=== PATIENT | male | born 1950 | race Two or more races ===

== ENCOUNTER 2022-07-03 10:38 | Inpatient (IN) | payer MEDICAID, OTHER ==
[~2022-07-03] VITALS: Ht 160 cm; Wt 64.7 kg
[2022-07-03 15:18] LABS: Basophils # (auto) 0 10 ^3/uL (0-0.2); Basophils % (auto) 0.3 % (0.0-2.0); Eosinophils # (auto) 0 10 ^3/uL (0-0.8); Eosinophils % (auto) 0.3 % (0.0-7.0); Hematocrit 36.7 % (41.0-53.0); Hemoglobin 12.8 g/dL (13.5-17.5); Lymphocytes # (auto) 0.9 10 ^3/uL (0.4-5.4); Lymphocytes % (auto) 9.8 % (10.0-50.0); Mean Corpuscular Hemoglobin 30.7 pg (28.0-32.0); Mean Corpuscular Volume 87.8 fL (80.0-100.0); Monocytes # (auto) 0.5 10 ^3/uL (0-1.3); Monocytes % (auto) 5.6 % (0.0-12.0); Neutrophils # (auto) 8.1 10 ^3/uL (1.6-8.6); Red Blood Cells 4.18 10^6/uL (4.5-5.90); Red Cell Distribution Width 12.8 % (11.8-14.3); White Blood Cell 9.6 10^3/uL (4.4-10.8)
[2022-07-03 15:35] LABS: Calcium 8.5 mg/dL (8.5-10.1); Potassium 4.1 mmol/L (3.5-5.1)
[2022-07-03 15:39] LABS: BUN/Creatinine Ratio 5.7 (10.0-20.0); Bilirubin, Total 0.9 mg/dL (0.2-1.0); Total Protein 6.4 g/dL (6.4-8.2)
[2022-07-03] MEDS ORDERED: cefTRIAXone 1GM/50ML D5W 50 ML IV ONE (16:00)
[2022-07-03] MEDS ORDERED: SODIUM CHLORIDE 0.9% 1,000 ML IV ONE (16:00)
[2022-07-03] MEDS ORDERED: AZITHROMYCIN 500MG/ 250ML 250 ML IV ONE (16:00)
[2022-07-03 18:38] LABS: Urine Bacteria NONE SEEN /hpf (None Seen); Urine Blood 2+ /uL (Negative); Urine Specific Gravity 1.008 (1.001-1.035); Urine WBC 557 /hpf (0 - 3)
[2022-07-03] MEDS ORDERED: MORPHINE SULFATE INJ 2 MG/ml SYRG IV PRN (19:15)
[2022-07-03] MEDS ORDERED: SODIUM CHLORIDE 0.9% 1,000 ML IV SCH ×2 (19:15)
[2022-07-03] MEDS ORDERED: ONDANSETRON HCL 4 MG/2 ML VIAL IV PRN (19:15)
[2022-07-03 19:49] LABS: Protein, Urine 43.7 mg/dL (0.0-11.9)
[2022-07-03] MEDS: SODIUM CHLORIDE 0.9% 1,000 ML IV SCH (21:43)
[2022-07-03] MEDS: DOCUSATE SOD 100 MG CAP PO PRN (23:07)
[2022-07-04 00:11] VITALS: BP 136/87
[2022-07-04] MEDS ORDERED: NITR100C6 PO (00:46)
[2022-07-04] MEDS ORDERED: TAMS0.4C36 PO (00:46)
[2022-07-04 05:00] VITALS: BP 120/62
[2022-07-04 06:14] LABS: Basophils # (auto) 0 10 ^3/uL (0-0.2); Basophils % (auto) 0.4 % (0.0-2.0); Eosinophils # (auto) 0 10 ^3/uL (0-0.8); Eosinophils % (auto) 0.3 % (0.0-7.0); Hematocrit 35.8 % (41.0-53.0); Hemoglobin 12.9 g/dL (13.5-17.5); Lymphocytes # (auto) 0.9 10 ^3/uL (0.4-5.4); Lymphocytes % (auto) 9.8 % (10.0-50.0); Mean Corpuscular Hemoglobin 31.7 pg (28.0-32.0); Mean Corpuscular Volume 88.2 fL (80.0-100.0); Monocytes % (auto) 10.7 % (0.0-12.0); Neutrophils % (auto) 78.8 % (37.0-80.0); Red Blood Cells 4.07 10^6/uL (4.5-5.90); Red Cell Distribution Width 12.8 % (11.8-14.3); White Blood Cell 8.9 10^3/uL (4.4-10.8)
[2022-07-04 07:01] LABS: Potassium 3.8 mmol/L (3.5-5.1)
[2022-07-04 07:13] LABS: Albumin 2.7 g/dL (3.4-5.0); BUN/Creatinine Ratio 10.8 (10.0-20.0); Calcium 8.5 mg/dL (8.5-10.1)
[2022-07-04 07:16] LABS: Total Protein 6.5 g/dL (6.4-8.2)
[2022-07-04] MEDS: SODIUM CHLORIDE 0.9% 1,000 ML IV SCH ×2 (07:30→17:30)
[2022-07-04 08:49] VITALS: BP 121/72
[2022-07-04] MEDS: cefTRIAXone 1GM/50ML D5W 50 ML IV SCH (09:00)
[2022-07-04] MEDS: ENOXAPARIN SOD 30 MG/0.3 ML SYRINGE SC SCH (10:00)
[2022-07-04] MEDS: AZITHROMYCIN 500MG/ 250ML 250 ML IV SCH (10:00)
[2022-07-04] MEDS ORDERED: FINASTERIDE 5 MG TAB PO SCH (10:00)
[2022-07-04 12:50] VITALS: BP 117/55
[2022-07-04 17:18] VITALS: BP 109/53
[2022-07-04] MEDS ORDERED: TAMSULOSIN HYDROCHLORIDE 0.4 MG CAP PO SCH (18:00)
[2022-07-04] MEDS: DOCUSATE SOD 100 MG CAP PO PRN (21:11)
[2022-07-04 22:00] VITALS: BP 118/53
[2022-07-05] MEDS: SODIUM CHLORIDE 0.9% 1,000 ML IV SCH ×2 (04:09→13:30)
[2022-07-05 05:00] VITALS: BP 106/57
[2022-07-05 05:05] LABS: Basophils # (auto) 0.1 10 ^3/uL (0-0.2); Basophils % (auto) 0.8 % (0.0-2.0); Eosinophils # (auto) 0.2 10 ^3/uL (0-0.8); Eosinophils % (auto) 2.4 % (0.0-7.0); Hematocrit 32.6 % (41.0-53.0); Hemoglobin 11.8 g/dL (13.5-17.5); Lymphocytes # (auto) 1.5 10 ^3/uL (0.4-5.4); Lymphocytes % (auto) 18.2 % (10.0-50.0); Mean Corpuscular Hemoglobin 31.4 pg (28.0-32.0); Mean Corpuscular Hgb Conc. 36.1 g/dL (32.0-36.0); Mean Corpuscular Volume 87.1 fL (80.0-100.0); Monocytes # (auto) 0.8 10 ^3/uL (0-1.3); Monocytes % (auto) 9.2 % (0.0-12.0); Neutrophils # (auto) 5.7 10 ^3/uL (1.6-8.6); Neutrophils % (auto) 69.4 % (37.0-80.0); Red Blood Cells 3.74 10^6/uL (4.5-5.90); Red Cell Distribution Width 12.8 % (11.8-14.3); White Blood Cell 8.2 10^3/uL (4.4-10.8)
[2022-07-05 05:11] LABS: Albumin 2.6 g/dL (3.4-5.0); Potassium 3.4 mmol/L (3.5-5.1)
[2022-07-05 05:15] LABS: Bilirubin, Total 0.4 mg/dL (0.2-1.0); Total Protein 6.3 g/dL (6.4-8.2)
[2022-07-05 08:26] VITALS: BP 113/65
[2022-07-05] MEDS ORDERED: FINASTERIDE 5 MG TAB PO SCH (10:00)
[2022-07-05] MEDS: cefTRIAXone 1GM/50ML D5W 50 ML IV SCH (10:02)
[2022-07-05] MEDS: ENOXAPARIN SOD 30 MG/0.3 ML SYRINGE SC SCH (10:02)
[2022-07-05] MEDS: AZITHROMYCIN 500MG/ 250ML 250 ML IV SCH (10:02)
[2022-07-05 13:00] VITALS: BP 113/65
[2022-07-05] MEDS ORDERED: FIN5T PO (13:27)
[2022-07-05] MEDS ORDERED: TAM04C PO (13:27)
[2022-07-05] MEDS ORDERED: CIPR500T4 PO (13:29)
== END 2022-07-05 15:00 | disposition home or self-care (01) | DRG 501 ==
LOC: ER 10:38 → TELE 19:05 → TELE-WESTW 22:50
PROVIDERS: ADMIT Nurse Practitioner Family; ATTEND Nurse Practitioner Family
DX: N40.1 Benign prostatic hyperplasia with lower urinary tract symptoms (principal); N17.9 Acute kidney failure, unspecified; E44.1 Mild protein-calorie malnutrition; N13.6 Pyonephrosis; J15.9 Unspecified bacterial pneumonia; N13.8 Other obstructive and reflux uropathy; E87.1 Hypo-osmolality and hyponatremia; N32.0 Bladder-neck obstruction; I12.9 Hypertensive chronic kidney disease with stage 1 through stage 4 chronic kidney disease, or unspecified chronic kidney disease; N18.9 Chronic kidney disease, unspecified; R60.0 Localized edema; D64.9 Anemia, unspecified; B96.1 Klebsiella pneumoniae [K. pneumoniae] as the cause of diseases classified elsewhere; Z68.25 Body mass index [BMI] 25.0-25.9, adult; Z87.891 Personal history of nicotine dependence; Z79.899 Other long term (current) drug therapy; R33.8 Other retention of urine
CPT/HCPCS: 36415; 71045; 74176; 76775; 80053; 81001; 82570; 83880; 84154; 84156; 84300; 84484; 85025; 87081; 87086; 87088; 87186; 93005; 93306; 93971; 96365; 96367; G0378; J0696

== ENCOUNTER 2022-09-11 22:55 | Emergency (ER) | payer MEDICAID ==
[~2022-09-11] VITALS: Ht 160 cm; Wt 70.0 kg
[~2022-09-11 22:55] MED LIST: CIPR500T4 PO; FIN5T PO; NITR100C6 PO; TAMS-35 PO; TAMS0.4C36 PO
[2022-09-12 01:22] LABS: Urine Bacteria MANY /hpf (None Seen); Urine Blood 3+ /uL (Negative); Urine Specific Gravity 1.016 (1.001-1.035); Urine WBC 2200 /hpf (0 - 3); Urine WBC Clumps PRESENT /hpf (None Seen)
[2022-09-12 03:00] VITALS: BP 139/84
[2022-09-12] MEDS ORDERED: cefTRIAXone SOD 1,000 MG VL IM ONE (07:30)
[2022-09-12] MEDS ORDERED: CIPR-173 PO (08:14)
== END 2022-09-12 08:44 | disposition home or self-care (01) ==
LOC: ER 22:55
DX: T83.098D Other mechanical complication of other urinary catheter, subsequent encounter (principal); N39.0 Urinary tract infection, site not specified; R33.9 Retention of urine, unspecified; I10 Essential (primary) hypertension; Z79.899 Other long term (current) drug therapy
CPT/HCPCS: 51702; 81001; 96372; 99284; J0696

== ENCOUNTER 2022-11-03 11:16 | Emergency (ER) | payer MEDICAID ==
[~2022-11-03] VITALS: Ht 157.5 cm; Wt 62.5 kg
[~2022-11-03 11:16] MED LIST changes: +CIPR-173 PO
[2022-11-03] MEDS ORDERED: cefTRIAXone SOD 1,000 MG VL IM ONE (12:45)
[2022-11-03 13:41] VITALS: BP 146/97; PULSE 99; RESP 16; TEMP 97.8; O2SAT 95
[2022-11-04] MEDS ORDERED: CEPH500C PO (14:50)
== END 2022-11-03 13:22 | disposition home or self-care (01) ==
LOC: ER 11:16
DX: T83.098A Other mechanical complication of other urinary catheter, initial encounter (principal); N40.1 Benign prostatic hyperplasia with lower urinary tract symptoms; N13.8 Other obstructive and reflux uropathy; I10 Essential (primary) hypertension; Z79.899 Other long term (current) drug therapy
CPT/HCPCS: 51702; 96372; 99284; J0696

== ENCOUNTER 2022-11-04 10:40 | Emergency (ER) | payer MEDICAID ==
[~2022-11-04] VITALS: Ht 157.5 cm; Wt 61.3 kg
[2022-11-04 11:49] LABS: Basophils # (auto) 0.1 10 ^3/uL (0-0.2); Basophils % (auto) 0.6 % (0.0-2.0); Eosinophils # (auto) 0 10 ^3/uL (0-0.8); Eosinophils % (auto) 0.3 % (0.0-7.0); Hematocrit 45.8 % (41.0-53.0); Hemoglobin 15.5 g/dL (13.5-17.5); Lymphocytes % (auto) 7.3 % (10.0-50.0); Mean Corpuscular Hemoglobin 30.3 pg (28.0-32.0); Mean Corpuscular Hgb Conc. 33.9 g/dL (32.0-36.0); Mean Corpuscular Volume 89.2 fL (80.0-100.0); Monocytes # (auto) 0.7 10 ^3/uL (0-1.3); Monocytes % (auto) 5.3 % (0.0-12.0); Neutrophils # (auto) 11.8 10 ^3/uL (1.6-8.6); Neutrophils % (auto) 86.5 % (37.0-80.0); Nucleated Red Blood Cells % 0.1 %; Red Blood Cells 5.13 10^6/uL (4.5-5.90); Red Cell Distribution Width 13.5 % (11.8-14.3); White Blood Cell 13.7 10^3/uL (4.4-10.8)
[2022-11-04 12:06] LABS: Chloride 106 mmol/L (98-107); Potassium 3.8 mmol/L (3.5-5.1); Sodium 139 mmol/L (136-145)
[2022-11-04 12:07] LABS: Anion Gap 8.3 (5-15); Calcium 9.3 mg/dL (8.5-10.1); Carbon Dioxide 24.7 mmol/L (20-30)
[2022-11-04 12:12] LABS: Alkaline Phosphatase 94 U/L (46-116); BUN/Creatinine Ratio 12.5 (10.0-20.0); Blood Urea Nitrogen 10 mg/dL (9-23); Glucose 111 mg/dL (74-106)
[2022-11-04 12:13] LABS: Albumin 4.8 g/dL (3.2-4.8); Aspartate Aminotransferase 23 U/L (13-40)
[2022-11-04 12:15] LABS: Bilirubin, Total 2.2 mg/dL (0.2-1.0)
[2022-11-04 12:40] LABS: Total Protein 7.6 g/dL (5.7-8.2)
[2022-11-04 12:42] LABS: Alanine Aminotransferase 13 U/L (7-40)
[2022-11-04] MEDS ORDERED: CEPH500C PO (14:50)
[2022-11-04 15:02] VITALS: BP 132/70; PULSE 78; RESP 19; TEMP 98.4; O2SAT 99
== END 2022-11-04 15:23 | disposition home or self-care (01) ==
LOC: ER 10:40
DX: T83.098D Other mechanical complication of other urinary catheter, subsequent encounter (principal); N39.0 Urinary tract infection, site not specified; I10 Essential (primary) hypertension; Z79.899 Other long term (current) drug therapy
CPT/HCPCS: 36415; 51702; 80053; 85025

== ENCOUNTER 2022-11-10 22:51 | Emergency (ER) | payer MEDICAID ==
[~2022-11-10] VITALS: Ht 160 cm; Wt 65.0 kg
[2022-11-10 22:51] VITALS: BP 151/69; PULSE 69; RESP 20; O2SAT 97
[~2022-11-10 22:51] MED LIST changes: +CEPH500C PO
[2022-11-11 03:56] LABS: Basophils # (auto) 0.1 10 ^3/uL (0-0.2); Basophils % (auto) 0.7 % (0.0-2.0); Eosinophils # (auto) 0.8 10 ^3/uL (0-0.8); Hematocrit 42.5 % (41.0-53.0); Hemoglobin 14.6 g/dL (13.5-17.5); Lymphocytes # (auto) 1.6 10 ^3/uL (0.4-5.4); Lymphocytes % (auto) 19.1 % (10.0-50.0); Mean Corpuscular Hemoglobin 30.8 pg (28.0-32.0); Mean Corpuscular Hgb Conc. 34.4 g/dL (32.0-36.0); Mean Corpuscular Volume 89.7 fL (80.0-100.0); Monocytes # (auto) 0.6 10 ^3/uL (0-1.3); Monocytes % (auto) 6.5 % (0.0-12.0); Neutrophils # (auto) 5.5 10 ^3/uL (1.6-8.6); Neutrophils % (auto) 64.7 % (37.0-80.0); Nucleated Red Blood Cells % 0.2 %; Red Blood Cells 4.74 10^6/uL (4.5-5.90); Red Cell Distribution Width 13.5 % (11.8-14.3); White Blood Cell 8.5 10^3/uL (4.4-10.8)
[2022-11-11 04:01] LABS: Alanine Aminotransferase 10 U/L (7-40); Albumin 4.4 g/dL (3.2-4.8); Alkaline Phosphatase 76 U/L (46-116); Anion Gap 3.6 (5-15); Aspartate Aminotransferase 12 U/L (13-40); BUN/Creatinine Ratio 11.3 (10.0-20.0); Bilirubin, Total 0.9 mg/dL (0.2-1.0); Blood Urea Nitrogen 9 mg/dL (9-23); Calcium 8.8 mg/dL (8.7-10.4); Carbon Dioxide 28.4 mmol/L (20-30); Chloride 106 mmol/L (98-107); Glucose 109 mg/dL (74-106); Potassium 3.8 mmol/L (3.5-5.1); Sodium 138 mmol/L (136-145)
[2022-11-11 04:02] LABS: Total Protein 6.8 g/dL (5.7-8.2)
[2022-11-11] MEDS ORDERED: CIPR-173 PO (07:23)
[2022-11-11] MEDS ORDERED: TAMS-35 PO (07:23)
[2022-11-11 07:51] LABS: Urine Bacteria FEW /hpf (None Seen); Urine Blood 3+ /uL (Negative); Urine Clarity Clear (Clear); Urine Color Yellow (Yellow); Urine Protein, UAD TRACE (Negative); Urine Urobilinogen Normal (Negative); Urine WBC 49 /hpf (0 - 3)
== END 2022-11-11 07:42 | disposition home or self-care (01) ==
LOC: ER 22:51
DX: N39.0 Urinary tract infection, site not specified (principal); Z46.6 Encounter for fitting and adjustment of urinary device; I10 Essential (primary) hypertension; Z98.890 Other specified postprocedural states; Z79.899 Other long term (current) drug therapy
CPT/HCPCS: 36415; 51702; 80053; 81001; 85025

== ENCOUNTER 2022-12-16 03:13 | Emergency (ER) | payer MEDICAID ==
[2022-12-16 04:00] VITALS: BP 140/89; PULSE 98; RESP 16; O2SAT 98
[2022-12-16 04:04] LABS: Urine Bacteria FEW /hpf (None Seen); Urine Blood 1+ /uL (Negative); Urine Clarity HAZY (Clear); Urine Color Yellow (Yellow); Urine Protein, UAD Negative (Negative); Urine Specific Gravity 1.012 (1.001-1.035); Urine Urobilinogen Normal (Negative); Urine WBC 22 /hpf (0 - 3)
== END 2022-12-16 04:29 | disposition left against medical advice (07) ==
LOC: ER 03:13
DX: T83.098A Other mechanical complication of other urinary catheter, initial encounter (principal); R14.0 Abdominal distension (gaseous); Z53.21 Procedure and treatment not carried out due to patient leaving prior to being seen by health care provider
CPT/HCPCS: 81001

== ENCOUNTER 2022-12-22 04:23 | Emergency (ER) | payer MEDICAID ==
[~2022-12-22] VITALS: Ht 160 cm; Wt 62.8 kg
[2022-12-22 06:53] LABS: Urine Bacteria FEW /hpf (None Seen); Urine Blood 3+ /uL (Negative); Urine Clarity Clear (Clear); Urine Protein, UAD Negative (Negative); Urine Specific Gravity 1.012 (1.001-1.035); Urine Urobilinogen Normal (Negative); Urine WBC 15 /hpf (0 - 3); Urine pH 6.5 (5.0-8.0)
[2022-12-22 06:54] LABS: Urine Color Straw (Yellow)
[2022-12-22] MEDS ORDERED: LEVO750T8 PO (07:12)
[2022-12-22 07:34] VITALS: BP 146/81; PULSE 97; RESP 17; TEMP 97.5; O2SAT 98
== END 2022-12-22 07:39 | disposition home or self-care (01) ==
LOC: ER 04:23
DX: Z46.6 Encounter for fitting and adjustment of urinary device (principal); N39.0 Urinary tract infection, site not specified; I10 Essential (primary) hypertension; Z79.2 Long term (current) use of antibiotics; Z79.899 Other long term (current) drug therapy
CPT/HCPCS: 51702; 81001

== ENCOUNTER 2022-12-22 22:27 | Emergency (ER) | payer MEDICAID ==
[~2022-12-22] VITALS: Ht 157.5 cm; Wt 75.0 kg
[~2022-12-22 22:27] MED LIST changes: +LEVO750T8 PO
[2022-12-23 00:08] VITALS: BP 138/64; PULSE 83; RESP 18; TEMP 98.8; O2SAT 98
== END 2022-12-23 00:32 | disposition home or self-care (01) ==
LOC: ER 22:27
DX: Z46.6 Encounter for fitting and adjustment of urinary device (principal); I10 Essential (primary) hypertension; F10.90 Alcohol use, unspecified, uncomplicated; Z87.438 Personal history of other diseases of male genital organs; Z79.899 Other long term (current) drug therapy; Y90.0 Blood alcohol level of less than 20 mg/100 ml
CPT/HCPCS: 51702

== ENCOUNTER 2023-01-19 20:29 | Emergency (ER) | payer MEDICAID ==
[~2023-01-19] VITALS: Ht 157.5 cm; Wt 63.7 kg
[2023-01-20 05:08] VITALS: BP 132/76; PULSE 67; RESP 16; TEMP 97.8
[2023-01-20 05:10] VITALS: O2SAT 98
== END 2023-01-20 05:22 | disposition home or self-care (01) ==
LOC: ER 20:29
DX: T83.018A Breakdown (mechanical) of other urinary catheter, initial encounter (principal); I10 Essential (primary) hypertension; N40.0 Benign prostatic hyperplasia without lower urinary tract symptoms
CPT/HCPCS: 51702

== ENCOUNTER 2023-02-26 11:52 | Emergency (ER) | payer MEDICAID ==
[~2023-02-26] VITALS: Ht 157.5 cm; Wt 72.7 kg
[2023-02-26 14:36] LABS: Urine Bacteria MOD /hpf (None Seen); Urine Blood 1+ /uL (Negative); Urine Budding Yeast FEW /hpf (None Seen); Urine Clarity HAZY (Clear); Urine Color Yellow (Yellow); Urine Hyaline Cast FEW /lpf (0 - 2); Urine Mucus FEW (None Seen); Urine Protein, UAD TRACE (Negative); Urine Specific Gravity 1.018 (1.001-1.035); Urine Urobilinogen Normal (Negative); Urine WBC 136 /hpf (0 - 3); Urine pH 6.5 (5.0-8.0)
[2023-02-26] MEDS ORDERED: CIPR-173 PO (14:53)
[2023-02-26 15:08] VITALS: BP 120/69; PULSE 84; RESP 18; TEMP 97.5; O2SAT 98
== END 2023-02-26 15:10 | disposition home or self-care (01) ==
LOC: EDBD 11:52 → ER 11:52
DX: N40.1 Benign prostatic hyperplasia with lower urinary tract symptoms (principal); N13.8 Other obstructive and reflux uropathy; N39.0 Urinary tract infection, site not specified; I10 Essential (primary) hypertension; Z46.6 Encounter for fitting and adjustment of urinary device; Z79.899 Other long term (current) drug therapy
CPT/HCPCS: 81001

== ENCOUNTER 2023-03-22 23:22 | Emergency (ER) | payer MEDICAID ==
[~2023-03-22] VITALS: Ht 157.5 cm; Wt 63.5 kg
[2023-03-22 23:22] VITALS: BP 148/82; PULSE 97; RESP 20; O2SAT 97
== END 2023-03-23 00:53 | disposition home or self-care (01) ==
LOC: ER 23:22
DX: R33.9 Retention of urine, unspecified (principal); Z53.21 Procedure and treatment not carried out due to patient leaving prior to being seen by health care provider
CPT/HCPCS: 51702

== ENCOUNTER 2023-04-19 18:09 | Emergency (ER) | payer MEDICAID ==
[~2023-04-19] VITALS: Ht 152.4 cm; Wt 63.7 kg
[2023-04-19 18:18] VITALS: BP 137/77; PULSE 83; RESP 15; O2SAT 98
== END 2023-04-19 22:05 | disposition home or self-care (01) ==
LOC: ER 18:09
DX: Z46.6 Encounter for fitting and adjustment of urinary device (principal); R10.2 Pelvic and perineal pain; Z87.438 Personal history of other diseases of male genital organs; I10 Essential (primary) hypertension; Z79.2 Long term (current) use of antibiotics; Z79.899 Other long term (current) drug therapy
CPT/HCPCS: 51702

== ENCOUNTER 2023-06-14 16:54 | Emergency (ER) | payer MEDICAID ==
[~2023-06-14] VITALS: Ht 165.1 cm; Wt 63.7 kg
[2023-06-14 17:27] VITALS: BP 134/70; PULSE 81; RESP 15; O2SAT 98
== END 2023-06-14 20:59 | disposition home or self-care (01) ==
LOC: ER 16:54
DX: R33.9 Retention of urine, unspecified (principal); I10 Essential (primary) hypertension; Z46.6 Encounter for fitting and adjustment of urinary device; Z87.438 Personal history of other diseases of male genital organs
CPT/HCPCS: 51702

== ENCOUNTER 2023-08-28 14:21 | Emergency (ER) | payer MEDICAID ==
[~2023-08-28] VITALS: Ht 157.5 cm; Wt 61.9 kg
[2023-08-28 15:51] VITALS: BP 132/68; PULSE 87; RESP 20; TEMP 98.8; O2SAT 96
[2023-08-28] MEDS ORDERED: BACDST PO (16:36)
== END 2023-08-28 16:36 | disposition home or self-care (01) ==
LOC: ER 14:21
DX: T83.098A Other mechanical complication of other urinary catheter, initial encounter (principal); N39.0 Urinary tract infection, site not specified; I10 Essential (primary) hypertension
CPT/HCPCS: 51702

== ENCOUNTER 2023-10-31 13:24 | Emergency (ER) | payer MEDICAID ==
[~2023-10-31] VITALS: Ht 157.5 cm; Wt 62.4 kg
[~2023-10-31 13:24] MED LIST changes: +BACDST PO; -TAMS0.4C36 PO; +TAMS0.4C39 PO
[2023-10-31 16:05] VITALS: BP 134/63; PULSE 90; RESP 19; TEMP 98.6; O2SAT 96
== END 2023-10-31 16:53 | disposition home or self-care (01) ==
LOC: ER 13:24
DX: N40.1 Benign prostatic hyperplasia with lower urinary tract symptoms (principal); N13.8 Other obstructive and reflux uropathy; I10 Essential (primary) hypertension; Z46.6 Encounter for fitting and adjustment of urinary device; Z79.899 Other long term (current) drug therapy

== ENCOUNTER 2023-12-20 10:13 | Emergency (ER) | payer MEDICAID ==
[2023-12-20 10:30] VITALS: BP 141/77; PULSE 84; RESP 16; TEMP 98.1; O2SAT 98
== END 2023-12-20 11:36 | disposition home or self-care (01) ==
LOC: ER 10:13
DX: T83.031A Leakage of indwelling urethral catheter, initial encounter (principal); I10 Essential (primary) hypertension; Z46.6 Encounter for fitting and adjustment of urinary device
CPT/HCPCS: 51702

== ENCOUNTER 2024-01-10 22:49 | Inpatient (IN) | payer MEDICAID ==
[~2024-01-10] VITALS: Ht 160 cm; Wt 66.7 kg
[2024-01-10 23:45] VITALS: PULSE 90; RESP 15; O2SAT 99
[2024-01-10 23:49] LABS: Basophils # (auto) 0 10 ^3/uL (0-0.2); Basophils % (auto) 0.6 % (0.0-2.0); Eosinophils # (auto) 0 10 ^3/uL (0-0.8); Eosinophils % (auto) 0.6 % (0.0-7.0); Hematocrit 40.2 % (41.0-53.0); Hemoglobin 14.2 g/dL (13.5-17.5); Lymphocytes # (auto) 0.8 10 ^3/uL (0.4-5.4); Lymphocytes % (auto) 13.5 % (10.0-50.0); Mean Corpuscular Hemoglobin 32.7 pg (28.0-32.0); Mean Corpuscular Hgb Conc. 35.3 g/dL (32.0-36.0); Mean Corpuscular Volume 92.5 fL (80.0-100.0); Monocytes # (auto) 0.8 10 ^3/uL (0-1.3); Monocytes % (auto) 12.8 % (0.0-12.0); Neutrophils # (auto) 4.3 10 ^3/uL (1.6-8.6); Neutrophils % (auto) 72.5 % (37.0-80.0); Nucleated Red Blood Cells % 0.1 %; Platelet Count (auto) 258 10^3/uL (140-450); Red Blood Cells 4.34 10^6/uL (4.5-5.90); Red Cell Distribution Width 13.2 % (11.8-14.3); White Blood Cell 5.9 10^3/uL (4.4-10.8)
--- NOTE | 2024-01-10 23:52 | ED.PDOC ---
History of Present Illness HPI Comments 73 y/o M, with a Hx of BPH s/p prostate Sx, HTN, and Torre catheter placement, presents with c/o Torre catheter improper draining and hematuria and non- radiating, suprapubic abdominal pain, today. Patient is a Bulgarian speaker and endorses on sudden onset of symptoms at around 1800, this evening. Patient comm ents on, initially, noticing blood in his Torre catheter prior to being unable to produce any urine since. Patient also states on pain to his abdomen being "pressure-like" in quality. Patient informs on recent prostate Sx performed by Dr. Buzz Martinez on 01/07/24. Patient comments on no recent stress, injuries, sick contact, travel, spoiled food intake, or substance use/exposure. Patient denies having any nausea, vomiting, dysuria, fever, chills, or other associated symptoms or modifiers at this time. Chief Complaint: Urinary Time Seen by MD: 23:00 Primary Care Provider: RADHA Fernandes Notes: Nurses Notes, Medications, Allergies Allergies: Coded Allergies: NO KNOWN ALLERGIES (Unverified , 07/03/22) Home Meds Active Scripts Sulfamethoxazole W/Trimethopri (Bactrim Ds Tablet) 1 Tab Tb, 1 TAB PO BID for 7 Days, #14 TAB 0 Refills Prov:SILVER SMITH SENIOR MEDIA DIRECTOR 12/06/23 Sulfamethoxazole W/Trimethopri (Bactrim Ds Tablet) 1 Tab Tb, 1 TAB PO BID for 10 Days, #20 TAB Prov:GARRICK WALTERS 09/23/23 Sulfamethoxazole W/Trimethopri (Bactrim Ds Tablet) 1 Tab Tb, 1 TAB PO BID for 10 Days, #20 TAB Prov:GARRICK WALTERS 08/28/23 Ciprofloxacin Hcl (Cipro) 500 Mg Tab, 1 TAB PO BID, #14 TAB Prov:CARYN MURILLO MD 02/26/23 Levofloxacin (Levaquin 750 mg) 750 Mg Tab, 1 TAB PO DAILY, #7 TAB Prov:ZEYAD BISHOP PAC 12/22/22 Ciprofloxacin Hcl (Cipro) 500 Mg Tab, 1 TAB PO BID, #20 TAB Prov:GARRICK WALTERS 11/11/22 Tamsulosin Hcl (Flomax) 0.4 Mg Cap, 1 CAP PO DAILY, #30 CAP Prov:GARRICK WALTERS 11/11/22 Cephalexin Monohydrate (Cephalexin) 500 Mg Cap, 500 MG PO Q8HR for 7 Days, #21 CAP Prov:MAR PELAYO DO 11/04/22 Ciprofloxacin Hcl (Ciprofloxacin Hcl) 500 Mg Tab, 1 TAB PO BID, #20 TAB Prov:FLYNN CORBIN SENIOR MEDIA DIRECTOR 07/05/22 Tamsulosin Hcl (Flomax) 0.4 Mg Cap, 0.4 MG PO QPM for 30 Days, #30 CAP Prov:FLYNN CORBIN SENIOR MEDIA DIRECTOR 07/05/22 Finasteride (Finasteride) 5 Mg Tab, 5 MG PO DAILY for 30 Days, #30 TAB Prov:FLYNN CORBIN SENIOR MEDIA DIRECTOR 07/05/22 Reported Medications Tamsulosin Hcl (Tamsulosin Hcl) 0.4 Mg Cap, 1 CAP PO DAILY 07/04/22 Nitrofurantoin Monohyd Macro (Nitrofurantoin Monohydrat) 100 Mg Cap, 1 CAP PO 07/04/22 Information Source: Patient Mode of Arrival: Ambulatory Severity: Moderate Timing: Hours Duration: Since onset Prehospital treatment: None Past Medical History PAST MEDICAL HISTORY: HTN Past Medical History (Other): BPH Surgical History (Other): Torre catheter in place, BPH s/p prostate Sx Family History Family History: Unknown Social History Smoker: Non-Smoker Alcohol: Denies ETOH Use Drugs: Denies Drug Use Lives In: Home Constitutional: denies: chills, diaphoresis, fatigue, fever, malaise, sweats, weakness, others EENTM: denies: blurred vision, double vision, ear bleeding, ear discharge, ear drainage, ear pain, ear ringing, eye pain, eye redness, hearing loss, mouth pain, mouth swelling, nasal discharge, nose bleeding, nose congestion, nose pain, photophobia, tearing, throat pain, throat swelling, voice changes, others Respiratory: denies: cough, hemoptysis, orthopnea, SOB at rest, shortness of breath, SOB with excertion, stridor, wheezing, others Cardiovascular: denies: chest pain, dizzy spells, diaphoresis, Dyspnea on exertion, edema, irregular heart beat, left arm pain, lightheadedness, palpitations, PND, syncope, others Gastrointestinal: reports: abdominal pain (suprapubic area ); denies: abdomen distended, blood streaked bowels, constipated, diarrhea, dysphagia, difficulty swallowing, hematemesis, melena, nausea, poor appetite, poor fluid intake, rectal bleeding, rectal pain, vomiting, others Genitourinary: reports: hematuria, others (Torre catheter obstruction,); denies: burning, dysuria, flank pain, frequency, incontinence, penile discharge, penile sore, pain, testicle pain, testicle swelling, urgency Neurological: denies: dizziness, fainting, headache, left sided numbness, left sided weakness, numbness, paresthesia, pre-existing deficit, right sided numbness, right sided weakness, seizure, speech problems, tingling, tremors, weakness, others Musculoskeletal: denies: back pain, gout, joint pain, joint swelling, muscle pain, muscle stiffness, neck pain, others Integumetry: denies: bruises, change in color, change in hair/nails, dryness, laceration, lesions, lumps, rash, wounds, others Allergic/Immunocompromised: denies: Difficulty Healing, Frequent Infections, Hives, Itching, others Hematologic/Lymphatic: denies: anemia, blood clots, easy bleeding, easy bruising, swollen glands, others Endocrine: denies: excessive hunger, excessive sweating, excessive thirst, excessive urination, flushing, intolerance to cold, intolerance to heat, unexplained weight gain, unexplained weight loss, others Psychiatric: denies: anxiety, bipolar disorder, depression, hopeless, panic disorder, schizophrenia, sleepless, suicidal, others All Other Systems: Reviewed and Negative Physical Exam General Appearance: No Apparent Distress, Normal HEENT: Normal ENT Inspection, Pharynx Normal, TMs Normal Neck: Full Range of Motion, Non-Tender, Normal, Normal Inspection Respiratory: Chest Non-Tender, Lungs Clear, No Accessory Muscle Use, No Respiratory Distress, Normal Breath Sounds Cardiovascular: No Edema, No JVD, No Murmur, No Gallop, Normal Peripheral Pulses, Regular Rate/Rhythm Breast Exam: Deferred Gastrointestinal: No Organomegaly, Non Tender, No Pulsatile Mass, Normal Bowel Sounds, Soft Genitalia: Other (Torre cathether in place) Pelvic: Deferred Rectal: Deferred Extremities: No calf tenderness, Normal capillary refill, Normal inspection, Normal range of motion, Non-tender, No pedal edema Musculoskeletal : Apperance: Normal Neurologic: Alert, ward secretary II-XII nml as Tested, No Motor Deficits, Normal Affect, Normal Mood, No Sensory Deficits Cerebellar Function: Normal Reflexes: Normal Skin: Dry, Normal Color, Warm Lymphatic: No Adenopathy Was a procedure done? Was a procedure done?: No Differential Dx Considerations may include: post-op complication, Torre catheter obstruction, UTI X-Ray, Labs, Meds, VS Vital Signs Date Time Temp Pulse Resp B/P (MAP) Pulse Ox O2 Delivery O2 Flow Rate FiO2 01/10/24 23:30 98.7 72 18 108/69 (82) 98 98.7 01/10/24 23:11 97.9 91 18 139/65 (89) 99 Lab Test 01/10/24 23:24 Range/Units White Blood Count 5.9 4.4-10.8 10^3/uL Red Blood Count 4.34 L 4.5-5.90 10^6/uL Hemoglobin 14.2 13.5-17.5 g/dL Hematocrit 40.2 L 41.0-53.0 % Mean Corpuscular Volume 92.5 80.0-100.0 fL Mean Corpuscular Hemoglobin 32.7 H 28.0-32.0 pg Mean Corpuscular Hemoglobin Concent 35.3 32.0-36.0 g/dL Red Cell Distribution Width 13.2 11.8-14.3 % Platelet Count 258 140-450 10^3/uL Mean Platelet Volume 7.8 6.9-10.8 fL Neutrophils (%) (Auto) 72.5 37.0-80.0 % Lymphocytes (%) (Auto) 13.5 10.0-50.0 % Monocytes (%) (Auto) 12.8 H 0.0-12.0 % Eosinophils (%) (Auto) 0.6 0.0-7.0 % Basophils (%) (Auto) 0.6 0.0-2.0 % Neutrophils # (Auto) 4.3 1.6-8.6 10 ^3/uL Lymphocytes # (Auto) 0.8 0.4-5.4 10 ^3/uL Monocytes # (Auto) 0.8 0-1.3 10 ^3/uL Eosinophils # (Auto) 0 0-0.8 10 ^3/uL Basophils # (Auto) 0 0-0.2 10 ^3/uL Nucleated Red Blood Cells 0.1 % Sodium Level 137 136-145 mmol/L Potassium Level 3.4 L 3.5-5.1 mmol/L Chloride Level 104 98-107 mmol/L Carbon Dioxide Level 29 20-31 mmol/L Anion Gap 4 L 5-15 Blood Urea Nitrogen 12 9-23 mg/dL Creatinine 0.89 0.700-1.30 mg/dL Glomerular Filtration Rate Calc 89 >90 mL/min BUN/Creatinine Ratio 13.5 10.0-20.0 Serum Glucose 103 74-106 mg/dL Calcium Level 9.1 8.7-10.4 mg/dL Time of 1ST Reevaluation: 23:30 Reevaluation 1ST: Unchanged Patient Education/Counseling: Diagnosis, Treatment Family Education/Counseling: No Family Present Departure 1 Departure Time of Disposition: 01:16 (Patient with blocked catheter after surgery. Patient likely need CVI and expert urology consultation. We will admit patient for further workup.) Impression: Primary Impression: Acute urinary retention Additional Impression: Hematuria Qualified Codes: R31.0 - Gross hematuria Disposition: ADMITTED INPATIENT Admit to: Med Surg Condition: Serious Critical Care Note Critical Care Time?: No Stability Stability form required: No Heart Score Heart Score: Heart Score Response (Comments) Value History N/A 0 EKG N/A 0 Age N/A 0 Risk Factors N/A 0 Troponin N/A 0 Total 0 I personally scribed for YESENIA LYN MD ([email or web address]) on 01/10/24 at 23:52. Electronically submitted by Rodrigo Zhang [email or web address]). YESENIA LYN MD Jan 10, 2024 23:52
[2024-01-10 23:56] LABS: Chloride 104 mmol/L (98-107); Potassium 3.4 mmol/L (3.5-5.1); Sodium 137 mmol/L (136-145)
[2024-01-10 23:57] LABS: Anion Gap 4 (5-15); Carbon Dioxide 29 mmol/L (20-31)
[2024-01-10 23:58] LABS: Calcium 9.1 mg/dL (8.7-10.4)
[2024-01-11 00:02] LABS: BUN/Creatinine Ratio 13.5 (10.0-20.0); Blood Urea Nitrogen 12 mg/dL (9-23); Glucose 103 mg/dL (74-106)
[2024-01-11 02:28] LABS: Urine Bacteria FEW /hpf (None Seen); Urine Blood 2+ /uL (Negative); Urine Clarity Clear (Clear); Urine Color Colorless (Yellow); Urine Protein, UAD TRACE (Negative); Urine Specific Gravity 1.003 (1.001-1.035); Urine Urobilinogen Normal (Negative); Urine WBC 1 /hpf (0 - 3); Urine pH 6.5 (5.0-9.0)
[2024-01-11] MEDS ORDERED: NITROGLYCERIN 0.4 MG SL TAB SL PRN (02:30)
[2024-01-11] MEDS ORDERED: MORPHINE SULFATE INJ 2 MG/ml SYRG IV PRN (02:30)
[2024-01-11] MEDS ORDERED: DOCUSATE SOD 100 MG CAP PO PRN (02:30)
[2024-01-11] MEDS ORDERED: ONDANSETRON HCL 4 MG/2 ML VIAL IV PRN (02:30)
[2024-01-11] MEDS ORDERED: ACETAMINOPHEN 325 MG TAB PO PRN (02:30)
--- NOTE | 2024-01-11 02:30 | DVHHP2 ---
RAJAT NERI NP 01/11/24 0229: History of Present Illness Reason for Visit: Malfunctioning indwelling joya catheter History of Present Illness 73-year-old male with past medical history of enlarged prostate status post prostate surgery on previous Wednesday presents with complaints of a malfunctioning Joya catheter. Patient states Joya catheter has not been draining. Patient endorses pelvic pain 12/15. In the emergency department's noted to have gross hematuria with blood clots occluding the Joya catheter. Patient states he is a patient Dr. Jazmin Martinez has a follow-up appointment on January 24, 2024. Despite multiple attempts to irrigate Joya catheter there is extensive clotting. Patient denies fevers, chills, nausea, shortness of breath, chest pain Renal/: Benign prostatic enlarg. Smoke: No ALCOHOL: none Drugs: None Lives: with Family Review of Systems Constitutional: No: Fever, Chills, Sweats, Weakness, Malaise, Other Eyes: No: Pain, Vision change, Conjunctivae inflammation, Eyelid inflammation, Other, Redness ENT: No: Ear pain, Ear discharge, Nose pain, Nose discharge, Nose congestion, Mouth pain, Mouth swelling, Throat pain, Throat swelling, Other Respiratory: No: Cough, Dry, Shortness of breath, SOB with excertion, Wheezing, Hemoptysis, Pleuritic Pain, Sputum, Wheezing, Other Cardiovascular: No: Chest Pain, Palpitations, Orthopnea, Paroxysmal Noc. Dyspnea, Edema, Lt Headedness, Other Gastrointestinal: No: Nausea, Vomiting, Abdominal Pain, Diarrhea, Constipation, Melena, Hematochezia, Other Genitourinary: No Dysuria, No Frequency, No Incontinence; Hematuria, Retention; No Other Musculoskeletal: No: other, neck pain, shoulder pain, arm pain, back pain, hand pain, leg pain, foot pain Skin: No: Rash, Lesions, Jaundice, Bruising, Other Neurological: No: Weakness, Numbness, Incoordination, Change in speech, Confusion, Seizures, Other Allergies: Coded Allergies: NO KNOWN ALLERGIES (Unverified , 07/03/22) Exam Vital Signs Vital Signs Date Time Temp Pulse Resp B/P (MAP) Pulse Ox O2 Delivery O2 Flow Rate FiO2 01/11/24 02:01 69 12 104/54 (71) 97 01/10/24 23:45 Room Air* 0 21 01/10/24 23:30 98.7 98.7 General Appearance: Alert, Oriented X3, Cooperative, mild distress HEENT: Atraumatic, PERRLA, EOMI Respiratory: Clear to auscultation, Normal air movement Cardiovascular: Regular rate, Normal S1, Normal S2 Abdominal: Normal bowel sounds, Soft, Other (Indwelling 3 way Joya catheter with CBI) Extremities: No clubbing, No cyanosis, No edema, Normal pulses Skin: No rashes, No breakdown Neuro: Normal speech, Cranial nerves 3-12 NL Psych/Mental Status: Mental status NL Labs/Xrays Labs Test 01/11/24 01:53 01/10/24 23:24 Range/Units Urine Color Colorless Yellow Urine Clarity Clear Clear Urine pH 6.5 5.0-9.0 Urine Specific [place] 1.003 1.001-1.035 Urine Protein Trace H Negative Urine Ketones Negative Negative Urine Blood 2+ H Negative /uL Urine Nitrite Negative Negative Urine Bilirubin Negative Negative Urine Urobilinogen Normal Negative mg/dL Urine Leukocyte Esterase Negative Negative /uL Urine RBC 3 0 - 3 /hpf Urine WBC 1 0 - 3 /hpf Urine Squamous Epithelial Cells None seen <5 /hpf Urine Bacteria Few H None Seen /hpf Urine Glucose Normal Normal mg/dL White Blood Count 5.9 4.4-10.8 10^3/uL Red Blood Count 4.34 L 4.5-5.90 10^6/uL Hemoglobin 14.2 13.5-17.5 g/dL Hematocrit 40.2 L 41.0-53.0 % Mean Corpuscular Volume 92.5 80.0-100.0 fL Mean Corpuscular Hemoglobin 32.7 H 28.0-32.0 pg Mean Corpuscular Hemoglobin Concent 35.3 32.0-36.0 g/dL Red Cell Distribution Width 13.2 11.8-14.3 % Platelet Count 258 140-450 10^3/uL Mean Platelet Volume 7.8 6.9-10.8 fL Neutrophils (%) (Auto) 72.5 37.0-80.0 % Lymphocytes (%) (Auto) 13.5 10.0-50.0 % Monocytes (%) (Auto) 12.8 H 0.0-12.0 % Eosinophils (%) (Auto) 0.6 0.0-7.0 % Basophils (%) (Auto) 0.6 0.0-2.0 % Neutrophils # (Auto) 4.3 1.6-8.6 10 ^3/uL Lymphocytes # (Auto) 0.8 0.4-5.4 10 ^3/uL Monocytes # (Auto) 0.8 0-1.3 10 ^3/uL Eosinophils # (Auto) 0 0-0.8 10 ^3/uL Basophils # (Auto) 0 0-0.2 10 ^3/uL Nucleated Red Blood Cells 0.1 % Sodium Level 137 136-145 mmol/L Potassium Level 3.4 L 3.5-5.1 mmol/L Chloride Level 104 98-107 mmol/L Carbon Dioxide Level 29 20-31 mmol/L Anion Gap 4 L 5-15 Blood Urea Nitrogen 12 9-23 mg/dL Creatinine 0.89 0.700-1.30 mg/dL Glomerular Filtration Rate Calc 89 >90 mL/min BUN/Creatinine Ratio 13.5 10.0-20.0 Serum Glucose 103 74-106 mg/dL Calcium Level 9.1 8.7-10.4 mg/dL Assessment/Plan Assessment/Plan Gross hematuria Malfunctioning indwelling joya catheter Hypokalemia Plan Admit medical floor Urology consult CBI As needed analgesia Monitor BMP. Correct electrolytes as needed GI ppx pepcid / DVT ppx SCDs Plan discussed with: Patient My Orders Orders - RAJAT NERI NP Procedure Category Date Status Time Admit ADMIT 01/11/24 Transmitted 02:21 Code Status CODE 01/11/24 Transmitted 02:21 Vital Signs [facility] 01/11/24 Transmitted 02:21 Review Orders With ROMY 01/11/24 Transmitted 02:21 Encourage Activity As ROMY 01/11/24 Transmitted Tolerate 02:21 Consistent DIET 01/11/24 Transmitted Carb(Ccho)Diabetes Breakfast Oxygen By Face Mask RT 01/11/24 Transmitted 02:21 Docusate Sodium PHA 01/11/24 Transmitted Capsule (Colace 02:30 Basic Metabolic Panel LAB 01/12/24 Verified 05:00 Basic Metabolic Panel LAB 01/13/24 Verified 05:00 Basic Metabolic Panel LAB 01/14/24 Verified 05:00 Basic Metabolic Panel LAB 01/15/24 Verified 05:00 Complete Blood Count LAB 01/11/24 Verified 05:00 Complete Blood Count LAB 01/12/24 Verified 05:00 Complete Blood Count LAB 01/13/24 Verified 05:00 Complete Blood Count LAB 01/14/24 Verified 05:00 Complete Blood Count LAB 01/15/24 Verified 05:00 Urine Bacterial NINA 01/11/24 Verified Culture 02:21 Patient Condition ORDERS 01/11/24 Verified 02:21 Allergies [facility] 01/11/24 Verified 02:21 Hydrocodone-Acet PHA 01/11/24 Verified 5/325mg Tab ([place] 02:30 Ondansetron Hcl PHA 01/11/24 Verified (Zofran) 02:30 Sequential [facility] 01/11/24 Verified Compression Device Nitroglycerin PHA 01/11/24 Verified Sublingual (Ntrostat 02:30 Morphine Sulfate PHA 01/11/24 Verified Injection 02:30 Stat Ekg For Chest [facility] 01/11/24 Verified Pain 02:21 Notify Md Of Changes [facility] 01/11/24 Verified From Base 02:21 Refinery Operator Helper For [facility] 01/11/24 Verified 24 Hours 02:21 Emergency Dysrhythmia [facility] 01/11/24 Verified Protocol 02:21 Rhythm Strips Once [facility] 01/11/24 Verified Every Shift 02:21 Oxygen By Nasal RT 01/11/24 Verified Cannula 02:21 * Urology Consult CONS 01/11/24 Verified 02:21 Communication Order ORDERS 01/11/24 Verified 02:21 Communication Order ORDERS 01/11/24 Verified 02:21 Acetaminophen Tablet PHA 01/11/24 Transmitted (Tylenol Tablet) 02:30 Notify Md Of Changes [facility] 01/11/24 Transmitted From Base 02:21 Advance Directive [facility] 01/11/24 Verified 02:21 Basic Metabolic Panel LAB 01/11/24 Verified 05:00 Date of Service: Jan 11, 2024 Billing Provider: FELTON MACHUCA MD Common Visit Codes: NOT BILLABLE FELTON MACHUCA MD 01/11/24 1242: Review of Systems Allergies: Coded Allergies: NO KNOWN ALLERGIES (Unverified , 07/03/22) Additional Comments Additional Comments Additional Comments Patient seen and evaluated by nurse practitioners. Patient showed is reviewed. I agree with nurse practitioner's evaluation given documentation, assessment and care plan as outlined. RAJAT NERI NP Jan 11, 2024 02:29 FELTON MACHUCA MD Jan 11, 2024 12:42
[2024-01-11] MEDS: POTASSIUM CHL 20 Meq TABLET PO ONE (03:43)
[2024-01-11 04:02] LABS: Basophils # (auto) 0 10 ^3/uL (0-0.2); Basophils % (auto) 0.7 % (0.0-2.0); Eosinophils # (auto) 0 10 ^3/uL (0-0.8); Eosinophils % (auto) 0.7 % (0.0-7.0); Lymphocytes # (auto) 1.1 10 ^3/uL (0.4-5.4); Lymphocytes % (auto) 21.2 % (10.0-50.0); Mean Corpuscular Hemoglobin 32.5 pg (28.0-32.0); Mean Corpuscular Hgb Conc. 35.2 g/dL (32.0-36.0); Mean Corpuscular Volume 92.2 fL (80.0-100.0); Monocytes # (auto) 0.6 10 ^3/uL (0-1.3); Monocytes % (auto) 12.7 % (0.0-12.0); Neutrophils # (auto) 3.3 10 ^3/uL (1.6-8.6); Neutrophils % (auto) 64.7 % (37.0-80.0); Platelet Count (auto) 236 10^3/uL (140-450); Red Blood Cells 4.01 10^6/uL (4.5-5.90); Red Cell Distribution Width 13.1 % (11.8-14.3); White Blood Cell 5.1 10^3/uL (4.4-10.8)
[2024-01-11 04:07] LABS: Anion Gap 6 (5-15); Carbon Dioxide 28 mmol/L (20-31); Chloride 106 mmol/L (98-107); Potassium 3.4 mmol/L (3.5-5.1); Sodium 140 mmol/L (136-145)
[2024-01-11 04:08] LABS: Calcium 9.1 mg/dL (8.7-10.4)
[2024-01-11 04:13] LABS: BUN/Creatinine Ratio 13.8 (10.0-20.0); Blood Urea Nitrogen 11 mg/dL (9-23); Glucose 97 mg/dL (74-106)
--- NOTE | 2024-01-11 09:01 | DVHINCON2 ---
Date of service: Jan 11, 2024 Referring Physician hospitalist Reason for Consultation hematuria History of Present Illness History Source: Patient, RN Notes, Old Records Exam Limitations: No limitations HPI 73 yo male who had partial TURP 01/07/[address] Rushing. Torre was removed post operatively on 01/10/24. pt was in urinary retention after removal. Presented to ER with gross hematuria. Pt is on CBI and it is clear at this time. Home Meds Active Scripts Sulfamethoxazole W/Trimethopri (Bactrim Ds Tablet) 1 Tab Tb, 1 TAB PO BID for 7 Days, #14 TAB 0 Refills Prov:SILVER SMITH UNDERGROUND PRODUCTION FOREPERSON 12/06/23 Sulfamethoxazole W/Trimethopri (Bactrim Ds Tablet) 1 Tab Tb, 1 TAB PO BID for 10 Days, #20 TAB Prov:GARRICK WALTERS 09/23/23 Sulfamethoxazole W/Trimethopri (Bactrim Ds Tablet) 1 Tab Tb, 1 TAB PO BID for 10 Days, #20 TAB Prov:GARRICK WALTERS 08/28/23 Ciprofloxacin Hcl (Cipro) 500 Mg Tab, 1 TAB PO BID, #14 TAB Prov:CARYN MURILLO MD 02/26/23 Levofloxacin (Levaquin 750 mg) 750 Mg Tab, 1 TAB PO DAILY, #7 TAB Prov:ZEYAD BISHOP 12/22/22 Ciprofloxacin Hcl (Cipro) 500 Mg Tab, 1 TAB PO BID, #20 TAB Prov:GARRICK WALTERS 11/11/22 Tamsulosin Hcl (Flomax) 0.4 Mg Cap, 1 CAP PO DAILY, #30 CAP Prov:GARRICK WALTERS 11/11/22 Cephalexin Monohydrate (Cephalexin) 500 Mg Cap, 500 MG PO Q8HR for 7 Days, #21 CAP Prov:MAR PELAYO DO 11/04/22 Ciprofloxacin Hcl (Ciprofloxacin Hcl) 500 Mg Tab, 1 TAB PO BID, #20 TAB Prov:FLYNN CORBIN UNDERGROUND PRODUCTION FOREPERSON 07/05/22 Tamsulosin Hcl (Flomax) 0.4 Mg Cap, 0.4 MG PO QPM for 30 Days, #30 CAP Prov:FLYNN CORBIN NP 07/05/22 Finasteride (Finasteride) 5 Mg Tab, 5 MG PO DAILY for 30 Days, #30 TAB Prov:FLYNN CORBIN UNDERGROUND PRODUCTION FOREPERSON 07/05/22 Reported Medications Tamsulosin Hcl (Tamsulosin Hcl) 0.4 Mg Cap, 1 CAP PO DAILY 07/04/22 Nitrofurantoin Monohyd Macro (Nitrofurantoin Monohydrat) 100 Mg Cap, 1 CAP PO 07/04/22 Past Medical History Renal/: Benign prostatic enlarg., Hematuria Review of Systems Genitourinary: Hematuria H&P Exam Vital Signs Vital Signs Date Time Temp Pulse Resp B/P (MAP) Pulse Ox O2 Delivery O2 Flow Rate FiO2 01/11/24 08:00 64 13 98/55 (69) 96 01/11/24 04:40 Room Air* 0 21 01/10/24 23:30 98.7 98.7 General Appeara: Well developed, Well nourished, Normal Appearance Neuro/Mental St: Alert, Oriented Appearance: Appropriate appearance, Appropriate insight Eye contact/ Speech: Cooperative, Good eye contact, Normal speech Skin Exam: Normal inspection, Normal color, Warm/dry Labs/Xrays Labs Test 01/11/24 03:25 01/11/24 01:53 Range/Units White Blood Count 5.1 4.4-10.8 10^3/uL Red Blood Count 4.01 L 4.5-5.90 10^6/uL Hemoglobin 13.0 L 13.5-17.5 g/dL Hematocrit 37.0 L 41.0-53.0 % Mean Corpuscular Volume 92.2 80.0-100.0 fL Mean Corpuscular Hemoglobin 32.5 H 28.0-32.0 pg Mean Corpuscular Hemoglobin Concent 35.2 32.0-36.0 g/dL Red Cell Distribution Width 13.1 11.8-14.3 % Platelet Count 236 140-450 10^3/uL Mean Platelet Volume 8.0 6.9-10.8 fL Neutrophils (%) (Auto) 64.7 37.0-80.0 % Lymphocytes (%) (Auto) 21.2 10.0-50.0 % Monocytes (%) (Auto) 12.7 H 0.0-12.0 % Eosinophils (%) (Auto) 0.7 0.0-7.0 % Basophils (%) (Auto) 0.7 0.0-2.0 % Neutrophils # (Auto) 3.3 1.6-8.6 10 ^3/uL Lymphocytes # (Auto) 1.1 0.4-5.4 10 ^3/uL Monocytes # (Auto) 0.6 0-1.3 10 ^3/uL Eosinophils # (Auto) 0 0-0.8 10 ^3/uL Basophils # (Auto) 0 0-0.2 10 ^3/uL Nucleated Red Blood Cells 0.0 % Sodium Level 140 136-145 mmol/L Potassium Level 3.4 L 3.5-5.1 mmol/L Chloride Level 106 98-107 mmol/L Carbon Dioxide Level 28 20-31 mmol/L Anion Gap 6 5-15 Blood Urea Nitrogen 11 9-23 mg/dL Creatinine 0.80 0.700-1.30 mg/dL Glomerular Filtration Rate Calc 92 >90 mL/min BUN/Creatinine Ratio 13.8 10.0-20.0 Serum Glucose 97 74-106 mg/dL Calcium Level 9.1 8.7-10.4 mg/dL Urine Color Colorless Yellow Urine Clarity Clear Clear Urine pH 6.5 5.0-9.0 Urine Specific [place] 1.003 1.001-1.035 Urine Protein Trace H Negative Urine Ketones Negative Negative Urine Blood 2+ H Negative /uL Urine Nitrite Negative Negative Urine Bilirubin Negative Negative Urine Urobilinogen Normal Negative mg/dL Urine Leukocyte Esterase Negative Negative /uL Urine RBC 3 0 - 3 /hpf Urine WBC 1 0 - 3 /hpf Urine Squamous Epithelial Cells None seen <5 /hpf Urine Bacteria Few H None Seen /hpf Urine Glucose Normal Normal mg/dL Assessment/Plan Problem List: (1) History of BPH (2) Hematuria Plan NPO TURP TBA 1600 Plan discussed with: Patient, Other NORA BALDWIN UNDERGROUND PRODUCTION FOREPERSON Jan 11, 2024 09:01
[2024-01-11] MEDS: D5W/SOD CHL 0.45% 1,000 ML IV SCH (12:50)
--- NOTE | 2024-01-11 13:03 | DVH ---
EXAM: XY CHEST PORTABLE Indication: Pain Technique: Single frontal view of the chest was obtained Comparison: XY CHEST PORTABLE on DOS: 07/03/22 FINDINGS: Lines and Tubes: None Lungs: No focal consolidation. Pleura: No effusion. No pneumothorax. Cardiomediastinal contours: Unremarkable Bones: No acute osseous abnormality. IMPRESSION: No acute cardiopulmonary disease.
[2024-01-11] MEDS: POTASSIUM CHLORIDE 20 MEQ, LIDOCAINE 1% (LOCAL ANESTH.) 2 ML in SODIUM CHL 0.9% 100 ML IV ONE (13:34)
--- NOTE | 2024-01-11 13:42 | ECG ---
[facility] Test Date: 2024-01-11 Test Time: 13:40:57 Pat Name: EDI FULTON Department: er Room: 0222 Gender: M Converting Supervisor: gp : [phone] Requested By: CORY SILVA Order Number: [id number] Reading MD: Carlos Castañeda Measurements Intervals Benge Rate: 62 P: 29 OH: 154 QRS: -25 QRSD: 133 T: 2 QT: 433 QTc: 440 Interpretive Statements Sinus rhythm Atrial premature complex Right bundle branch block Electronically Signed On 01-13-2024 11:53:43 PST by Carlos Castañeda Please click the below link to view image of tracing.
[2024-01-11 13:51] LABS: INR 1.04 (0.9-1.15); Partial Thromboplastin Time 29.3 SEC (24.5-34.5)
--- NOTE | 2024-01-11 14:53 | DVHSR ---
APPROVED REPORT EXAM: Two-dimensional and M-mode echocardiogram with Doppler and color Doppler. Blood Pressure: 116/63 mmHg INDICATION CHF RISK FACTORS Height: 5'3", Weight: 140 DIMENSIONS LVDd4.6 (3.8-5.7cm)LA (2D)3.5 (1.9-4.0cm)Aortic Root3.4 (2.0-3.7cm) LVDs3.2 (2.5-4.0cm)LA (MM) (1.9-4.0cm)Aortic Cusp Exc1.7 (1.5-2.0cm) EF (%) 60.0 (55-70%)Rt. Atrium3.9 (1.9-4.0cm)Asc. Aorta cm IVSd1.0 (0.7-1.1cm)RV (D)3.0 (1.8-2.4cm) PWd1.1 (0.7-1.1cm) Mitral Valve MitralMitral Stenosis E wave0.71m/sMV Mean GR.mmHg A wave0.91m/sMV Peak GR.mmHg E/A ratio0.82D MVAcm2 DECEL [id number] 1/2 Timems Aortic Valve Aortic ValveAortic Stenosis V11.05m/Breanne Mean GR.5mmHg V21.53m/Breanne Peak GR.9mmHg LVOT Diameter2.0 (1.8-2.4cm)Doppler AVA2.15cm2 Tricuspid Valve TR Velocity2.50m/s [id number] Conclusion Normal left ventricular size and dimension. Normal left ventricular systolic function estimated ejec tion fraction 55%. There is a grade 1 diastolic dysfunction. Normal right ventricular size and dimension. Normal right ventricular systolic function. Pulmonary artery systolic pressure estimated at 28 mm of mercury. Normal biatrial size and dimension. Normal aortic valve structure and function. Normal mitral valve structure and function. Normal tricuspid valve structure and function. The pulmonary valve is grossly normal. No pericardial effusion.
[2024-01-11] MEDS: ceFAZolin 2 GM/D5W100ml 100 ML IV ONE (15:27)
[2024-01-11] MEDS ORDERED: MIDAZOLAM HCL 2MG/2ML 2ml VIAL (1mg/ml) ONE (15:51)
[2024-01-11] MEDS ORDERED: fentaNYL CITRATE 100 MCG/2 ML VL ONE (15:51)
[2024-01-11] MEDS: TETRACAINE 1% INJ 2 ML VIAL IJ ONE (15:53)
[2024-01-11] MEDS: ONDANSETRON HCL 4 MG/2 ML VIAL IV ONE (16:15)
[2024-01-11] MEDS ORDERED: hydrALAZINE HCL 20 MG/ML VL IV PRN (16:15)
[2024-01-11] MEDS ORDERED: HYDROmorphone HCL 2 MG/ML VL/or syr IV PRN (16:15)
[2024-01-11] MEDS ORDERED: MORPHINE SULFATE 4 MG/ML SYR/VIAL IV PRN (16:15)
[2024-01-11] MEDS ORDERED: MIDAZOLAM HCL 2MG/2ML 2ml VIAL (1mg/ml) IV PRN (16:15)
[2024-01-11] MEDS ORDERED: ePHEDrine SULFATE 50 MG/ML AMP IV PRN (16:15)
[2024-01-11] MEDS ORDERED: DexAMETHasone SOD PHOS 10MG/1ML VIAL INJ ONE (16:31)
[2024-01-11] MEDS ORDERED: PROPOFOL 10 MG/ML 20 ML IV ONE (16:31)
--- NOTE | 2024-01-11 17:02 | POSTOP ---
Post-Operative Note Post-Operative Note Preop Diagnosis Gross hematuria and urinary retention BPH Postop Diagnosis: Same Operation performed Trans urethral resection of the prostate gland (stage II) Specimen Prostate tissue Anesthesia: Regional Anesthesiologist: Nader Surgeon Cory Silva Date 01/11/24 Time 17:01 CORY SILVA MD Jan 11, 2024 17:02
[2024-01-11 17:10] VITALS: PULSE 61; RESP 12; O2SAT 100
[2024-01-11 18:22] VITALS: BP 89/55; PULSE 59; RESP 17; TEMP 98.4
[2024-01-11 20:00] VITALS: PULSE 74; RESP 18; O2SAT 96
[2024-01-11 21:00] VITALS: BP 111/66; PULSE 74; RESP 17; TEMP 97.8; O2SAT 96
[2024-01-11] MEDS: HYDROcodone-ACET 5/325MG TAB PO PRN (23:48)
[2024-01-12] VITALS (7 sets, daily range): BP systolic 94–124; BP diastolic 51–61; PULSE 55–69; RESP 16–18; TEMP 98.2–98.9; O2SAT 96–99
[2024-01-12 06:44] LABS: Basophils # (auto) 0 10 ^3/uL (0-0.2); Basophils % (auto) 0.2 % (0.0-2.0); Eosinophils # (auto) 0 10 ^3/uL (0-0.8); Hematocrit 39.5 % (41.0-53.0); Lymphocytes # (auto) 0.8 10 ^3/uL (0.4-5.4); Lymphocytes % (auto) 8.9 % (10.0-50.0); Mean Corpuscular Hemoglobin 32.6 pg (28.0-32.0); Mean Corpuscular Hgb Conc. 35.4 g/dL (32.0-36.0); Mean Corpuscular Volume 92.1 fL (80.0-100.0); Monocytes # (auto) 0.5 10 ^3/uL (0-1.3); Monocytes % (auto) 6.1 % (0.0-12.0); Neutrophils # (auto) 7.2 10 ^3/uL (1.6-8.6); Neutrophils % (auto) 84.8 % (37.0-80.0); Platelet Count (auto) 268 10^3/uL (140-450); Red Blood Cells 4.28 10^6/uL (4.5-5.90); Red Cell Distribution Width 13.1 % (11.8-14.3); White Blood Cell 8.5 10^3/uL (4.4-10.8)
[2024-01-12 06:47] LABS: Calcium 9.4 mg/dL (8.7-10.4); Chloride 105 mmol/L (98-107); Potassium 4.1 mmol/L (3.5-5.1); Sodium 140 mmol/L (136-145)
[2024-01-12 06:48] LABS: Anion Gap 6 (5-15); Carbon Dioxide 29 mmol/L (20-31)
[2024-01-12 06:53] LABS: BUN/Creatinine Ratio 19.3 (10.0-20.0); Blood Urea Nitrogen 16 mg/dL (9-23); Glucose 101 mg/dL (74-106)
[2024-01-12] MEDS: INFLUENZA TRIVALENT 2024-2025 0.5 ML INJ IM ONE (07:15)
[2024-01-12] MEDS: FINASTERIDE 5 MG TAB PO SCH (09:22)
[2024-01-12] MEDS: PNEUMOCOCCAL VACC POLYS 25 MCG/0.5 ML VIAL IM ONE (10:00)
--- NOTE | 2024-01-12 14:33 | DVHPN2 ---
Progress Note - Dictate Date Seen: Jan 12, 2024 Medical Necessity Reason Pt with a Central, PICC or Fol: No Subjective Underwent successful transurethral resection of the prostate yesterday. Today he is on minimal amount of continuous bladder irrigation. No hematuria noted. Patient feels well. vital signs Vital Sign Date Time Temp Pulse Resp B/P (MAP) Pulse Ox O2 Delivery O2 Flow Rate FiO2 01/12/24 13:15 98.9 69 18 124/61 (82) 99 98.9 01/11/24 20:00 Room Air* 0 21 Total Intake and Output 01/11/24 01/11/24 01/12/24 15:00 23:00 07:00 Intake Total 10 ml 1235 ml Output Total 400 ml 7050 ml Balance -390 ml -5815 ml medications Current Medications Medications Dose Ordered Sig/Maryan Route Start Time Stop Time Status Last Admin Dose Admin Docusate Sodium 100 mg BIDPRN PRN PO 01/11/24 02:30 Acetaminophen 650 mg Q6HP PRN PO 01/11/24 02:30 Acetaminophen/ Hydrocodone Bitart 1 tab Q4HP PRN PO 01/11/24 02:30 01/11/24 23:48 1 TAB Ondansetron HCl 4 mg Q4HP PRN IV 01/11/24 02:30 Nitroglycerin 0.4 mg Q5MINP PRN SL 01/11/24 02:30 Morphine Sulfate 2 mg Q30M PRN IV 01/11/24 02:30 Dextrose/Sodium Chloride 1,000 ml @ 75 mls/hr [id number] IV 01/11/24 12:45 01/11/24 23:28 75 MLS/HR Finasteride 5 mg DAILY PO 01/12/24 10:00 01/12/24 09:22 5 MG objective Alert awake oriented x3. HEENT neck supple no JVD. Heart regular rate and rhythm S1 and S2. Lungs without rales wheezes. Abdomen soft nontender positive bowel sounds. Extremities no edema positive pulses. Patient has a Torre catheter with a bladder irrigation. Clear urine noted without any gross hematuria. laboratory and microbiology Laboratory Tests 01/12/24 05:00 Test 01/12/24 05:00 Range/Units Serum Glucose 101 74-106 mg/dL Assessment/Plan Status post TURP procedure yesterday. Clinically stable. Continue bladder irrigation and to consider discontinue it this evening if no further hematuria. Monitor him overnight and if he remains stable consider discharge home tomorrow. However advised the nurse to have follow up evaluation with the urologist today and to make further recommendations for appropriate discharge. Discussed with the patient regarding care plan. Problems(with codes): (1) BPH with urinary obstruction (2) Torre catheter in place Plan discussed with: Patient, Other FELTON MACHUCA MD Jan 12, 2024 14:33
[2024-01-13 01:00] VITALS: BP 116/59; PULSE 51; RESP 17; TEMP 98.8; O2SAT 96
[2024-01-13 05:00] VITALS: BP 119/66; PULSE 65; RESP 17; TEMP 98.4; O2SAT 99
[2024-01-13 07:06] LABS: Basophils # (auto) 0 10 ^3/uL (0-0.2); Basophils % (auto) 0.4 % (0.0-2.0); Eosinophils # (auto) 0 10 ^3/uL (0-0.8); Eosinophils % (auto) 0.6 % (0.0-7.0); Hematocrit 37.2 % (41.0-53.0); Hemoglobin 13.1 g/dL (13.5-17.5); Lymphocytes # (auto) 1.5 10 ^3/uL (0.4-5.4); Lymphocytes % (auto) 21.1 % (10.0-50.0); Mean Corpuscular Hemoglobin 32.2 pg (28.0-32.0); Mean Corpuscular Hgb Conc. 35.1 g/dL (32.0-36.0); Mean Corpuscular Volume 91.7 fL (80.0-100.0); Monocytes # (auto) 0.6 10 ^3/uL (0-1.3); Monocytes % (auto) 8.5 % (0.0-12.0); Neutrophils % (auto) 69.4 % (37.0-80.0); Platelet Count (auto) 236 10^3/uL (140-450); Red Blood Cells 4.06 10^6/uL (4.5-5.90); Red Cell Distribution Width 13.2 % (11.8-14.3); White Blood Cell 7.2 10^3/uL (4.4-10.8)
[2024-01-13 07:18] LABS: Anion Gap 6 (5-15); Carbon Dioxide 28 mmol/L (20-31); Chloride 108 mmol/L (98-107); Potassium 3.8 mmol/L (3.5-5.1); Sodium 142 mmol/L (136-145)
[2024-01-13 07:19] LABS: Calcium 8.6 mg/dL (8.7-10.4)
[2024-01-13 07:24] LABS: BUN/Creatinine Ratio 16.7 (10.0-20.0); Blood Urea Nitrogen 13 mg/dL (9-23); Glucose 101 mg/dL (74-106)
[2024-01-13 09:00] VITALS: BP 155/84; PULSE 74; RESP 18; TEMP 97.7; O2SAT 93
[2024-01-13 13:00] VITALS: BP 114/65; PULSE 61; RESP 18; TEMP 97.9; O2SAT 99
--- NOTE | 2024-01-13 14:54 | DVHDS2 ---
Discharge Summary Date of Admission Jan 11, 2024 at 02:21 Date of Discharge: Jan 13, 2024 Labs/Diagnostic Data: Laboratory Results Test 01/13/24 06:30 01/11/24 13:22 01/11/24 01:53 White Blood Count 7.2 10^3/uL (4.4-10.8) Red Blood Count 4.06 10^6/uL (4.5-5.90) Hemoglobin 13.1 g/dL (13.5-17.5) Hematocrit 37.2 % (41.0-53.0) Mean Corpuscular Volume 91.7 fL (80.0-100.0) Mean Corpuscular Hemoglobin 32.2 pg (28.0-32.0) Mean Corpuscular Hemoglobin Concent 35.1 g/dL (32.0-36.0) Red Cell Distribution Width 13.2 % (11.8-14.3) Platelet Count 236 10^3/uL (140-450) Mean Platelet Volume 7.9 fL (6.9-10.8) Neutrophils (%) (Auto) 69.4 % (37.0-80.0) Lymphocytes (%) (Auto) 21.1 % (10.0-50.0) Monocytes (%) (Auto) 8.5 % (0.0-12.0) Eosinophils (%) (Auto) 0.6 % (0.0-7.0) Basophils (%) (Auto) 0.4 % (0.0-2.0) Neutrophils # (Auto) 5.0 10 ^3/uL (1.6-8.6) Lymphocytes # (Auto) 1.5 10 ^3/uL (0.4-5.4) Monocytes # (Auto) 0.6 10 ^3/uL (0-1.3) Eosinophils # (Auto) 0 10 ^3/uL (0-0.8) Basophils # (Auto) 0 10 ^3/uL (0-0.2) Nucleated Red Blood Cells 0.0 % Sodium Level 142 mmol/L (136-145) Potassium Level 3.8 mmol/L (3.5-5.1) Chloride Level 108 mmol/L (98-107) Carbon Dioxide Level 28 mmol/L (20-31) Anion Gap 6 (5-15) Blood Urea Nitrogen 13 mg/dL (9-23) Creatinine 0.78 mg/dL (0.700-1.30) Glomerular Filtration Rate Calc 93 mL/min (>90) BUN/Creatinine Ratio 16.7 (10.0-20.0) Serum Glucose 101 mg/dL (74-106) Calcium Level 8.6 mg/dL (8.7-10.4) Prothrombin Time 11.0 sec (9.3-11.8) Prothrombin Time INR 1.04 (0.9-1.15) Activated Partial Thromboplast Time 29.3 SEC (24.5-34.5) Urine Color Colorless (Yellow) Urine Clarity Clear (Clear) Urine pH 6.5 (5.0-9.0) Urine Specific [place] 1.003 (1.001-1.035) Urine Protein Trace (Negative) Urine Ketones Negative (Negative) Urine Blood 2+ /uL (Negative) Urine Nitrite Negative (Negative) Urine Bilirubin Negative (Negative) Urine Urobilinogen Normal mg/dL (Negative) Urine Leukocyte Esterase Negative /uL (Negative) Urine RBC 3 /hpf (0 - 3) Urine WBC 1 /hpf (0 - 3) Urine Squamous Epithelial Cells None seen /hpf (<5) Urine Bacteria Few /hpf (None Seen) Urine Glucose Normal mg/dL (Normal) Other Laboratory Tests 01/13/24 06:30 Brief Hx & Hospital Course: 73-year-old male with past medical history of enlarged prostate status post prostate surgery on previous Wednesday presents with complaints of a malfunctioning Torre catheter. Patient states Torre catheter has not been draining. Patient endorses pelvic pain 10/10. In the emergency department's noted to have gross hematuria with blood clots occluding the Torre catheter. Patient states he is a patient Dr. Jazmin Martinez has a follow-up appointment on January 24, 2024. Despite multiple attempts to irrigate Torre catheter there is extensive clotting. Patient denies fevers, chills, nausea, shortness of breath, chest pain He is admitted and evaluated by urologist. Patient underwent a successful Transurethral resection of his prostate. Patient had Torre catheter in and advised to follow up with the urologist. Otherwise patient is clinically stable. No hematuria. Urinating clear yellow urine with Torre catheter. Therefore it is felt he could be safely discharged. I have talked with the patient through lang interpreter/nurse at bedside regarding his procedure that he had done and need for keeping the Torre catheter upon discharge and following up with the urologist in 3-5 days. He is also advised to continue the medications as he is prescribed. Patient verbalized understanding of his hospital diagnosis, procedure he had done, discharge medications, discharge instructions and agree with the discharge follow-up plan of care. Consults/Reason for consult Conclusion Normal left ventricular size and dimension. Normal left ventricular systolic function estimated ejection fraction 55%. There is a grade 1 diastolic dysfunction. Normal right ventricular size and dimension. Normal right ventricular systolic function. Pulmonary artery systolic pressure estimated at 28 mm of mercury. Normal biatrial size and dimension. Normal aortic valve structure and function. Normal mitral valve structure and function. Normal tricuspid valve structure and function. The pulmonary valve is grossly normal. No pericardial effusion. SIGNED BY: MILAGROS CEBALLSO MD Operations or Procedures Post-Operative Note Preop Diagnosis Gross hematuria and urinary retention BPH Postop Diagnosis: Same Operation performed Trans urethral resection of the prostate gland (stage II) Specimen Prostate tissue Anesthesia: Regional Anesthesiologist: Nader Martinez Date 01/11/24 Time 17:01 CORY MARTINEZ MD Jan 11, 2024 17:02 DICTATED BY:CORY MARTINEZ MD Condition at Discharge: Stable Final Diagnosis/Problems List BPH status post trans urethral resection of the prostate Discharge Disposition: Home Discharge Instruct/Medications Diet: Consistent carbohydrate, Cardiac 2g Na,low cholest Activity: No Restrictions, As Tolerated Follow Up/Referral: Urologist Dr. Cory Martinez on Wednesday for possible removal of indwelling Torre catheter. Please call to make an appointment. Medications: Medications per discharge medication list. Continued Medications: Finasteride (Finasteride) 5 Mg Tab 5 MG PO DAILY for 30 Days, #30 TAB Tamsulosin Hcl (Tamsulosin Hcl) 0.4 Mg Cap 1 CAP PO DAILY Discontinued Medications: Cephalexin Monohydrate (Cephalexin) 500 Mg Cap 500 MG PO Q8HR for 7 Days, #21 CAP Ciprofloxacin Hcl (Ciprofloxacin Hcl) 500 Mg Tab 1 TAB PO BID, #20 TAB Ciprofloxacin Hcl (Cipro) 500 Mg Tab 1 TAB PO BID, #20 TAB Ciprofloxacin Hcl (Cipro) 500 Mg Tab 1 TAB PO BID, #14 TAB Levofloxacin (Levaquin 750 mg) 750 Mg Tab 1 TAB PO DAILY, #7 TAB Nitrofurantoin Monohyd Macro (Nitrofurantoin Monohydrat) 100 Mg Cap 1 CAP PO Sulfamethoxazole W/Trimethopri (Bactrim Ds Tablet) 1 Tab Tb 1 TAB PO BID for 10 Days, #20 TAB Sulfamethoxazole W/Trimethopri (Bactrim Ds Tablet) 1 Tab Tb 1 TAB PO BID for 10 Days, #20 TAB Sulfamethoxazole W/Trimethopri (Bactrim Ds Tablet) 1 Tab Tb 1 TAB PO BID for 7 Days, #14 TAB 0 Refills Tamsulosin Hcl (Flomax) 0.4 Mg Cap 0.4 MG PO QPM for 30 Days, #30 CAP Tamsulosin Hcl (Flomax) 0.4 Mg Cap 1 CAP PO DAILY, #30 CAP Discharge Statement: "Patient was advised to return to the ER or call 911 if any headaches, dizziness, shortness of breath, chest pain, abdominal pain, bleeding, fevers, or worsening of medical condition. Patient was counseled about treatment plan, medications, possible side effects, patientverbalized understanding. All questions were answered to the best of my ability. This discharge took greater then 30 minutes in planning, reviewing documentation, counseling the patient, and discussing with other team members." ASSESSMENT ASSESSMENT Assessment BPH status post trans urethral resection of the prostate FELTON MACHUCA MD Jan 13, 2024 14:54
--- NOTE | 2024-01-13 15:20 | DVHPN2 ---
Progress Note - Dictate Date Seen: Jan 13, 2024 Medical Necessity Reason Pt with a Central, PICC or Fol: No The following are medically ne: Torre Catheter Medical Necessity Reason Postop day 2, Following his 2nd staged prostatectomy Subjective No new complaint. Patient wishes to be discharged. Urine is clear on CBI for he has Torre catheter vital signs Vital Sign Date Time Temp Pulse Resp B/P (MAP) Pulse Ox O2 Delivery O2 Flow Rate FiO2 01/13/24 13:00 97.9 61 18 114/65 (81) 99 97.9 01/13/24 08:15 Room Air* 0 21 Total Intake and Output 01/12/24 01/12/24 01/13/24 15:00 23:00 07:00 Intake Total 500 ml 1650 ml 700 ml Output Total 7200 ml 700 ml Balance 500 ml -5550 ml 0 ml medications Current Medications Medications Dose Ordered Sig/Maryan Route Start Time Stop Time Status Last Admin Dose Admin Docusate Sodium 100 mg BIDPRN PRN PO 01/11/24 02:30 Acetaminophen 650 mg Q6HP PRN PO 01/11/24 02:30 Acetaminophen/ Hydrocodone Bitart 1 tab Q4HP PRN PO 01/11/24 02:30 01/12/24 22:32 1 TAB Ondansetron HCl 4 mg Q4HP PRN IV 01/11/24 02:30 Nitroglycerin 0.4 mg Q5MINP PRN SL 01/11/24 02:30 Morphine Sulfate 2 mg Q30M PRN IV 01/11/24 02:30 Dextrose/Sodium Chloride 1,000 ml @ 75 mls/hr [id number] IV 01/11/24 12:45 01/13/24 09:41 75 MLS/HR Finasteride 5 mg DAILY PO 01/12/24 10:00 01/13/24 09:34 5 MG objective Torre catheter in place with CBI discontinued this afternoon. laboratory and microbiology Laboratory Tests 01/13/24 06:30 Test 01/13/24 06:30 Range/Units Serum Glucose 101 74-106 mg/dL Problem List Prostate enlargement requiring two prostatectomies in a staged manner due to his large size Assessment/Plan Torre to gravity May discharge home with leg bag Follow-up next week on Wednesday for a voiding trial in the office setting Plan discussed with: Patient, Other CORY SILVA MD 7, 2024 15:20
[2024-01-13 17:00] VITALS: BP 112/64; PULSE 64; RESP 17; TEMP 98; O2SAT 98
[2024-01-13] MEDS ORDERED: PHENYLEPHRINE HCL 10 MG/ML VL IV ONE (17:59)
== END 2024-01-13 18:00 | disposition home or self-care (01) | DRG 482 ==
LOC: ER 22:49 → OVERFLOW 01-11 02:21 → CENTRAL 01-11 18:11
PROVIDERS: ADMIT Nurse Practitioner Family; ATTEND Internal Medicine
PROC: 0VT08ZZ Resection of Prostate, Via Natural or Artificial Opening Endoscopic (ICD-10-PCS; principal; 2024-01-11 15:05)
DX: N40.1 Benign prostatic hyperplasia with lower urinary tract symptoms (principal); N13.8 Other obstructive and reflux uropathy; T83.091A Other mechanical complication of indwelling urethral catheter, initial encounter; E87.6 Hypokalemia; R31.0 Gross hematuria; R33.8 Other retention of urine; I10 Essential (primary) hypertension; Z79.899 Other long term (current) drug therapy; Z90.79 Acquired absence of other genital organ(s); Y92.89 Other specified places as the place of occurrence of the external cause; Y84.8 Other medical procedures as the cause of abnormal reaction of the patient, or of later complication, without mention of misadventure at the time of the procedure
CPT/HCPCS: 36415; 71045; 80048; 81001; 85025; 85610; 85730; 87086; 93005; 93306; G0378; J1100; J2003; J2250; J2704